=== PATIENT | male | born 1970 | race Caucasian/White ===

== ENCOUNTER 2024-03-21 20:30 | Inpatient (IN) | payer BC, MEDICARE, OTHER ==
--- NOTE | 2024-03-21 22:20 | ED ---
Neuro HPI - General Chief Complaint: Neuro Symptoms/Deficit Stated Complaint: Neuro Consult Time Seen by Provider: 03/21/24 21:00 Source: patient, EMS, RN notes reviewed Mode of arrival: EMS Limitations: no limitations - History of Present Illness Is the patient presenting with stroke symptoms?: No Initial Comments: 53-year-old male with history of seizure, hemorrhagic and ischemic stroke presenting to the ER via EMS as a transfer from [facility] for neuroconsult and left knee fracture. Patient was at home earlier today when he lost consciousness and fell in the driveway outside his daughter's house and is not remember anything. His had explained that he had atypical seizure, was shaky for about 2 minutes and after that was very confused and combative. He has been taking all of his medications regularly, does not miss any doses. He is currently taking Eliquis, Keppra, and Vimpat. X-ray of the left knee revealed fibular head fracture. He believes he fractured his knee when he fell in the driveway. Denies headache, vision changes, chest pain, shortness of breath, URI symptoms. He had a second, 30 second tonic-clonic seizure in the radiology department at [facility]. - Related Data Allergies/Adverse Reactions: Allergies Allergy/AdvReac Type Severity Reaction Status Date / Time azithromycin Allergy Rash/Hives Verified 03/21/24 20:39 almonte AdvReac Itching Verified 03/21/24 20:40 Review of Systems ROS Statement: Those systems with pertinent positive or pertinent negative responses have been documented in the HPI. ROS Other: All systems not noted in ROS Statement are negative. General Exam Limitations: no limitations General appearance: alert, in no apparent distress Head exam: Present: atraumatic, normocephalic, normal inspection Eye exam: Present: normal appearance, PERRL, EOMI. Absent: scleral icterus, conjunctival injection, periorbital swelling ENT exam: Present: normal exam, mucous membranes moist Respiratory exam: Present: normal lung sounds bilaterally. Absent: respiratory distress, wheezes, rales, rhonchi, stridor Cardiovascular Exam: Present: regular rate, normal rhythm, normal heart sounds. Absent: systolic murmur, diastolic murmur, rubs, gallop, clicks GI/Abdominal exam: Present: soft, normal bowel sounds. Absent: distended, tenderness, guarding, rebound, rigid Left Hip exam: Absent: normal inspection (Long-leg splint placed) Neurovascular tendon exam: Present: no vascular compromise. Absent: pulse deficit, abnormal cap refill, sensory deficit Stroke MDM - Medical Decision Making Was pt. sent in by a medical professional or institution ([facility], MITER GRINDER OPERATOR, urgent care, hospital, or fdc...) When possible be specific @ -Patient was transferred from [facility] for left fibular head fracture and multiple seizures Did you speak to anyone other than the patient for history (EMS, parent, family, police, friend...)? What history was obtained from this source @ -No Did you review nursing and triage notes (agree or disagree)? Why? @ -Yes I agree Were old charts reviewed (outside hosp., previous admission, EMS record, old EKG, old radiological studies, urgent care reports/EKG's, fdc records)? Report findings @ -I reviewed transfer papers from [facility] Differential Diagnosis (chest pain, altered mental status, abdominal pain women, abdominal pain men, vaginal bleeding, weakness, fever, dyspnea, syncope, headache, dizziness, GI bleed, back pain, seizure, CVA, palpatations, mental hea lth, musculoskeletal)? @ -Differential Altered Mental Status: Hypoglycemia, DKA, hypercapnia, ETOH, overdose, CO poisoning, trauma, myxedema coma, HTN encephalopathy, infection, encephalitis, psychosis, intercranial hemorrhage, hepatic encephalopathy, meningitis, CVA, this is not meant to be an all-inclusive list EKG interpreted by me (3pts min.). @ -None X-rays interpreted by me (1pt min.). @ -None done CT interpreted by me (1pt min.). @ -None done U/S interpreted by me (1pt. min.). @ -None done What testing was considered but not performed or refused? (CT, X-rays, U/S, labs)? Why? @ -None What meds were considered but not given or refused? Why? @ -None Did you discuss the management of the patient with other professionals (professionals i.e. [facility], MITER GRINDER OPERATOR, lab, RT, psych nurse, sexual assault social worker, metalsmith, teacher, benefits officer, pillowcase maker)? Give summary @ -I spoke with Mony from [facility] who accepts admission at this time for multiple seizures and right fibular head fracture with consultation to neurology and orthopedic services. I also spoke with Dr. Arguello who is the on-call neurologist and she is aware of consultation. Was smoking cessation discussed for >3mins.? @ -No Was critical care preformed (if so, how long)? @ -No Were there social determinants of health that impacted care today? How? (Homelessness, low income, unemployed, alcoholism, drug addiction, transportation, low edu. Level, literacy, decrease access to med. care, detention, rehab)? @ -No Was there de-escalation of care discussed even if they declined (Discuss DNR or withdrawal of care, Hospice)? DNR status @ -No What co-morbidities impacted this encounter? (DM, HTN, Smoking, COPD, CAD, Cancer, CVA, ARF, Chemo, Hep., AIDS, mental health diagnosis, sleep apnea, morbid obesity)? @ -None Was patient admitted / discharged? Hospital course, mention meds given and route, prescriptions, significant lab abnormalities, going to OR and other pertinent info. @ -Patient was admitted. Patient was transferred from [facility] for multiple seizures and left fibular head fracture. He had a tonic-clonic seizure in his driveway earlier today and was brought by EMS to [facility]. He was diagnosed with a left fibular head fracture, likely from fall during the seizure. He had 30 second tonic-clonic seizure in the radiology department. He was given Ativan and transferred for admission with neurology and orthopedic consult. CT of lumbar spine, chest x-ray, left hip, CT of head and brain performed at [facility] and were negative. Lab work at [facility] including CBC, CMP, magnesium, troponin, lactic, coags, venous pH were remarkable for INR 1.05 and venous pH 7.46. I spoke with Mony from [facility] who accepts admission at this time for multiple seizures and right fibular head fracture with consultation to neurology and orthopedic services. I also spoke with Dr. Jensen who is the on- call neurologist and she is aware of consultation. Keppra levels pending at time of admission. Undiagnosed new problem with uncertain prognosis? @ -No Drug Therapy requiring intensive monitoring for toxicity (Heparin, Nitro, Insulin, Cardizem)? @ -No Were any procedures done? @ -No Diagnosis/symptom? @ -Multiple seizures, right fibular head fracture Acute, or Chronic, or Acute on Chronic? @ -Acute Uncomplicated (without systemic symptoms) or Complicated (systemic symptoms)? @ -Complicated Side effects of treatment? @ -No Exacerbation, Progression, or Severe Exacerbation? @ -No Poses a threat to life or bodily function? How? (Chest pain, [place], [place], pneumonia, PE, COPD, DKA, ARF, appy, cholecystitis, CVA, Diverticulitis, Homicidal, Suicidal, threat to staff... and all critical care pts) @ -Possibly Past Medical History Additional Past Medical History / Comment(s): Stroke 2011 Past Surgical History: Heart Catheterization Additional Past Surgical History / Comment(s): Brain aneurysm "burst" -2011 Past Psychological History: Anxiety, Depression Smoking Status: Former smoker Past Alcohol Use History: None Reported Past Drug Use History: Marijuana Course Vital Signs 03/21/24 03/21/24 03/21/24 20:32 22:11 23:00 Temperature 98.3 F Pulse Rate 89 84 86 Respiratory 18 16 18 Rate Blood Pressure 156/102 164/78 151/82 O2 Sat by Pulse 98 95 95 Oximetry Disposition Clinical Impression: Seizures, Fracture of head of right fibula Disposition: ADMITTED IP TO THIS [facility] Condition: Stable Referrals: Kush Baron MD [Primary Care Provider] - 1-2 days Time of Disposition: 23:54
[2024-03-21] MEDS: HYDROmorphone 0.5 MG/0.5 ML SYRINGE IVP PRN (23:03)
[2024-03-21] MEDS ORDERED: NALOXONE 0.4 MG/ML 1 ML VIAL IV PRN (23:31)
[2024-03-21] MEDS ORDERED: LORazepam 2 MG/ML INJ IV PRN (23:42)
[2024-03-22] MEDS: HYDROmorphone 1 MG/ML 1 ML SYRINGE IVP STA (02:23)
[2024-03-22] MEDS: ACETAMINOPHEN TAB 325 MG TAB PO PRN (05:52)
--- NOTE | 2024-03-22 11:19 | XR ---
EXAMINATION TYPE: XR knee complete LT DATE OF EXAM: 03/22/2024 COMPARISON: None HISTORY: Fall, pain TECHNIQUE: 4 view left knee FINDINGS: No acute fracture or dislocation evident. Fibular head appears intact. Joint spaces are pre served. No joint effusion is evident. Follow up exams can be performed 7-10 days from acute trauma for continued pain. IMPRESSION: 1. No acute osseous abnormality left knee.
--- NOTE | 2024-03-22 11:20 | XR ---
EXAMINATION TYPE: XR ankle complete LT DATE OF EXAM: 03/22/2024 COMPARISON: None HISTORY: Fall, pain TECHNIQUE: 3 view left ankle FINDINGS: Very large plantar calcaneal heel spur is noted. Ankle mortise is intact. No acute fracture or dislocation is evident. Soft tissues are normal. IMPRESSION: 1. No acute fractures evident. 2. Very large plantar calcaneal spur
[2024-03-22 12:00] VITALS: TEMP 98.1
[2024-03-22] MEDS ORDERED: DOCUSATE 100 MG CAP PO PRN (12:06)
--- NOTE | 2024-03-22 12:18 | EEG ---
ELECTROENCEPHALOGRAM REPORT PREAMBLE: This is a 53-year-old male who came to the hospital after having multiple seizures at home that were witnessed by family. He has history of seizures secondary to brain bleed and stroke. He fell during the seizure and fractured his left leg. The patient mentioned that he has not missed any dose of his seizure medication and has not had a seizure for over 4 years. EEG FINDINGS: This is a 21-channel digital EEG recorded with video component, utilizing 10/20 international system with referential and bipolar montages. Background consists of well-developed, well-regulated moderate voltage activity in 9-10 hertz alpha. Background is posterior dominant and seems to be reactive to eye opening and closing. Photic driving response was seen with some flash frequencies. Hyperventilation was not done. Drowsiness was seen with presence of some symmetric theta frequency rhythm. Deeper stages of sleep were not seen. No focal or generalized epileptiform activity was seen. EKG channel showed no obvious arrhythmia. IMPRESSION: This is a normal awake and drowsy EEG. No focal, lateralized, or epileptiform activity was seen. MMODL / IJN: [id number] /
--- NOTE | 2024-03-22 13:18 | P.HPIM ---
History of Present Illness H&P Date: 03/22/24 History of present illness; patient is a 53-year-old gentleman with past medical history significant for seizures, CVA who presents the ER as a transfer from [facility] for seizures. Patient stated that he was all right 1 day back and while he was at her daughter's house, when suddenly he had a seizure episode. Daughter and over at the site noticed patient to suddenly collapsed and started having jerking movement of all his extremities. There was no complaint of any fecal or urine incontinence at the time. Patient was seizing for approximately 2 minutes. Following that patient was postictal and confused. During that episode patient fell on his left knee. EMS was called and patient was brought to the Hospital. Patient was worked up there, x-ray of the left knee showed fibular head fracture. Patient had an episode of seizures in the ER of [facility]. For neurology evaluation patient was transferred to [facility] Patient admitted to internal medicine service REVIEW OF SYSTEMS: CONSTITUTIONAL: No fever, no malaise, no fatigue. HEENT: No recent visual problems or hearing problems. Denied any sore throat. CARDIOVASCULAR: No chest pain, orthopnea, PND, no palpitations, no syncope. PULMONARY: No shortness of breath, no cough, no hemoptysis. GASTROINTESTINAL: No diarrhea, no nausea, no vomiting, no abdominal pain. NEUROLOGICAL: No headaches, no weakness, no numbness. HEMATOLOGICAL: Denies any bleeding or petechiae. GENITOURINARY: Denies any burning micturition, frequency, or urgency. MUSCULOSKELETAL/RHEUMATOLOGICAL: Left knee pain ENDOCRINE: Denies any polyuria or polydipsia. The rest of the 14-point review of systems is negative. PHYSICAL EXAMINATION: GENERAL: The patient is alert and oriented x3, not in any acute distress. Well developed, well nourished. HEENT: Pupils are round and equally reacting to light. EOMI. No scleral icterus. No conjunctival pallor. Normocephalic, atraumatic. No pharyngeal erythema. No thyromegaly. CARDIOVASCULAR: S1 and S2 present. No murmurs, rubs, or gallops. PULMONARY: Chest is clear to auscultation, no wheezing or crackles. ABDOMEN: Soft, nontender, nondistended, normoactive bowel sounds. No palpable organomegaly. MUSCULOSKELETAL: Left knee brace EXTREMITIES: No cyanosis, clubbing, or pedal edema. NEUROLOGICAL: Gross neurological examination did not reveal any focal deficits. SKIN: No rashes. Assessment and plan Fall Acute metabolic encephalopathy Seizures Left fibular fracture Monitor vital signs Monitor CBC Monitor CMP Continue telemetry monitoring Continue neurochecks Ordered seizure precaution Ordered fall precautions Ordered Keppra levels Ordered home Vimpat and Keppra dose Consult orthopedic surgery consult neurology Ordered PT and OT Labs and medication were reviewed.. Continue same treatment. Continue with symptomatic treatment. Resume home medication. Monitor labs and vitals. DVT and GI prophylaxis. Further recommendations as per clinical course of the patient Dictation was produced using [employer] dictation software. please excuse any grammatical, word or spelling errors. Past Medical History Additional Past Medical History / Comment(s): Stroke 2011 Past Surgical History: Heart Catheterization Additional Past Surgical History / Comment(s): Brain aneurysm "burst" -2011 Past Psychological History: Anxiety, Depression Smoking Status: Former smoker Past Alcohol Use History: None Reported Past Drug Use History: Marijuana Medications and Allergies Home Medications Medication Instructions Recorded Confirmed Type Amitriptyline HCl [Elavil] 150 mg PO HS 03/22/24 03/22/24 History Apixaban [Eliquis] 5 mg PO BID 03/22/24 03/22/24 History Atorvastatin [Lipitor] 40 mg PO HS 03/22/24 03/22/24 History LORazepam [Ativan] 0.5 mg PO BID 03/22/24 03/22/24 History Lacosamide [Vimpat] 100 mg PO BID 03/22/24 03/22/24 History Methadone HCl 10 mg PO 5XD 03/22/24 03/22/24 History Metoprolol Succinate (ER) [Toprol 25 mg PO DAILY 03/22/24 03/22/24 History Xl] levETIRAcetam [Keppra] 1,500 mg PO BID 03/22/24 03/22/24 History lisinopriL [Prinivil] 20 mg PO DAILY 03/22/24 03/22/24 History Allergies Allergy/AdvReac Type Severity Reaction Status Date / Time azithromycin Allergy Rash/Hives Verified 03/22/24 09:38 erythromycin base Allergy Rash/Hives Verified 03/22/24 09:38 [From Erythrocin] almonte AdvReac Itching Verified 03/22/24 09:38 Physical Exam Vitals: Vital Signs Temp Pulse Resp BP Pulse Ox 03/22/24 11:56 98.1 F 85 16 140/123 95 03/22/24 08:30 98 03/22/24 07:00 69 16 150/88 96 03/22/24 05:00 72 16 150/84 96 03/22/24 02:34 75 16 154/87 97 03/22/24 01:00 82 18 155/90 94 L 03/21/24 23:00 86 18 151/82 95 03/21/24 22:11 84 16 164/78 95 03/21/24 20:32 98.3 F 89 18 156/102 98 Intake and Output 03/21/24 03/22/24 03/22/24 22:59 06:59 14:59 Other: Weight 118.841 kg
[2024-03-22] MEDS: Lacosamide IV (ages 17+ yrs) 200 MG/20 ML ML IVP SCH (13:30)
[2024-03-22] MEDS: levETIRAcetam IV 500 MG/5 ML VIAL IVP STA (13:38)
--- NOTE | 2024-03-22 14:17 | P.CNNES ---
History of Present Illness Consult date: 03/22/24 Requesting physician: Christina Chavez Reason for Consult: Multiple seizures History of Present Illness: Patient is a 53-year-old male with history of CVA, seizure disorder, came to the hospital by ambulance yesterday at 8:30 PM, as a transfer from [facility] for management of seizure disorder. Patient's son and [id number] are present, who also provided with a history. They mentioned that patient was helping his and daughter unpack, talking to his daughter, when he started stuttering, went down on the ground and had a seizure lasting for 2 to 3 minutes. He did not bite his tongue, as he is edentulous, and did lose control of urine with a seizure. He was taken to [facility] by ambulance, as he was complaining of low back pain, left leg pain and left leg numbness. He was given fentanyl 75 mcg by the EMS. In [facility], he underwent testing, where there was suspected left fibular fracture. He was transferred to [facility]. As per records from [facility], at 5:15 PM, patient had a seizure in radiology department, lasted for 30 seconds duration, generalized tonic-clonic. He was awake after with no significant postictal confusion. He received Ativan 1 mg IV. Vital signs on arrival at [facility], blood pressure 156/102, pulse 89 temperature 98.3. Blood test none available. Ankle x-ray showed no acute fracture evident. Very large plantar calcaneal spur. X-ray of the knee showed no acute osseous abnormality left knee. Home medications includes Keppra 1500 mg twice daily, Vimpat 100 mg twice daily methadone 10 mg 5 times a day, Lipitor, Eliquis 5 mg twice daily, lorazepam, lisinopril, Elavil 150 mg at bedtime and metoprolol. 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 His INR went very high and he had a "hemorrhagic stroke" in 2011 with subsequent left-sided weakness. Coumadin was discontinued. He started having seizures. He had multiple seizures for a few years. In 2017, he suffered from "ischemic stroke" and was found to have "blood clot in the neck". He was then started on Eliquis. Since then, his seizures has been very well-controlled, and he had about only couple "staring seizures", in which she "zones out" and the last one was in around 2018. He has been doing well on Keppra 1500 mg twice daily and Vimpat 100 mg twice daily. He has not had a big seizure for 6 years. Patient states that he never misses the dose of his seizure medications. He does not drink alcohol. Denies any sleep deprivation. In fact he is sleeping m ore than usual because of some depression. He does take Ativan 0.5 mg twice daily, denies running out of it or any other seizure medication. He used to take Xanax and within the year was switched to Ativan. Patient claims of having advanced ankylosing spondylitis. This was diagnosed about 1 to 2 years ago. Records from [facility]: CT lumbar spine revealed no acute findings. Bony fusion changes noted which could represent inflammatory arthropathy such as ankylosing spondylitis.. x-ray of the tibia revealed possible fibular head fracture. X-ray of the chest showed no acute findings. X-ray of the left hip showed no acute findings. X-ray of the left femur showed no acute findings. CT head revealed no acute intracranial process. Visualized sinuses are unremarkable. No fluid level. I personally reviewed CT head, and agree with the findings. No evidence of recent or remote stroke. No mass lesion. Magnesium 1.9 CMP is normal. Troponin negative. PTT normal. Lactate 2.2. BNP is 102/100. INR normal. Venous pH 7.46. CBC is normal. Patient was given Keppra 1000 mg once, Ativan 0.5 mg, morphine 4 mg in the ER. Patient has history of seizure disorder, hemorrhagic and ischemic stroke in the past, was brought by EMS after he lost his consciousness and fell, and he remembers waking in the driveway outside his daughter house and then he does not remember anything. Review of Systems Constitutional: Reports weight loss, Denies chills, Denies fever Eyes: denies blurred vision, denies diplopia, denies pain, denies loss of peripheral vision Ears: left: decreased hearing, deny: ear discharge Ears, nose, mouth and throat: Reports headache (dailly), Denies sore throat, Denies vertigo Cardiovascular: Reports lightheadedness (on standing up), Denies chest pain, Denies shortness of breath Respiratory: Denies cough, Denies excessive sputum Gastrointestinal: Reports constipation, Denies abdominal pain, Denies diarrhea, Denies nausea, Denies vomiting Genitourinary: Denies dysuria, Denies incontinence Musculoskeletal: Reports low back pain, Reports neck pain Integumentary: Denies pruritus, Denies rash Neurological: Reports as per HPI Psychiatric: Reports anxiety, Reports depression Endocrine: Reports weight change, Denies fatigue Past Medical History Additional Past Medical History / Comment(s): Stroke 2011 Past Surgical History: Heart Catheterization Additional Past Surgical History / Comment(s): Brain aneurysm "burst" -2011 Past Psychological History: Anxiety, Depression Smoking Status: Former smoker Past Alcohol Use History: None Reported Past Drug Use History: Marijuana Medications and Allergies Home Medications Medication Instructions Recorded Confirmed Type Amitriptyline HCl [Elavil] 150 mg PO HS 03/22/24 03/22/24 History Apixaban [Eliquis] 5 mg PO BID 03/22/24 03/22/24 History Atorvastatin [Lipitor] 40 mg PO HS 03/22/24 03/22/24 History LORazepam [Ativan] 0.5 mg PO BID 03/22/24 03/22/24 History Lacosamide [Vimpat] 100 mg PO BID 03/22/24 03/22/24 History Methadone HCl 10 mg PO 5XD 03/22/24 03/22/24 History Metoprolol Succinate (ER) [Toprol 25 mg PO DAILY 03/22/24 03/22/24 History Xl] levETIRAcetam [Keppra] 1,500 mg PO BID 03/22/24 03/22/24 History lisinopriL [Prinivil] 20 mg PO DAILY 03/22/24 03/22/24 History Allergies Allergy/AdvReac Type Severity Reaction Status Date / Time azithromycin Allergy Rash/Hives Verified 03/22/24 09:38 erythromycin base Allergy Rash/Hives Verified 03/22/24 09:38 [From Erythrocin] almonte AdvReac Itching Verified 03/22/24 09:38 Physical Examination - Vital Signs Vital Signs: Vital Signs Temp Pulse Resp BP Pulse Ox 03/22/24 11:56 98.1 F 85 16 140/123 95 03/22/24 08:30 98 03/22/24 07:00 69 16 150/88 96 03/22/24 05:00 72 16 150/84 96 03/22/24 02:34 75 16 154/87 97 03/22/24 01:00 82 18 155/90 94 L 03/21/24 23:00 86 18 151/82 95 03/21/24 22:11 84 16 164/78 95 03/21/24 20:32 98.3 F 89 18 156/102 98 Intake and Output 03/21/24 03/22/24 03/22/24 22:59 06:59 14:59 Other: Weight 118.841 kg Patient is a middle aged male, in no acute distress. Patient is alert awake oriented to time place and person. He knows it is March 2024 and that he is in [place] in [facility]. Speech and language functions are normal. Patient can name and repeat very well. No aphasia or dysarthria. Attention, concentration and fund of knowledge is adequate. On cranial nerve examination, pupils are equal, round and reacting to light, visual sanchez are full on confrontation, with no neglect on double simultaneous stimulation. Extraocular muscles are intact with no nystagmus. Face is symmetric, tongue protrudes to the midline. Palatal elevation and sensation normal, hearing and shoulder shrug normal, facial sensation normal. On muscle strength testing, there is mild left pronator drift and the strength is normal in arms and legs distally and proximally, except for business rules analyst which is 4 on the left, 5 on the right. Rest of the examination is normal. Deep tendon reflexes are symmetric very hypoactive and plantars are flat. Sensory to touch is decreased in the left arm and left leg as compared to the right side. Sensations are equal on the face. Cerebellar function showed no ataxia for [id number] testing, although he was very tremulous bilaterally. No dysdiadochokinesia. No ataxia for [id number] testing on either side. Tone and bulk of muscles normal. Gait deferred.. On general examination, there is no carotid bruit or murmur, S1-S2 audible. Chest is clear on consultation. Abdomen is soft nontender. No organomegaly, bowel sounds present. Peripheral pulses are present. Mild peripheral edema. He has some purplish discoloration of the distal lower extremities. Assessment and Plan Assessment: * Seizure disorder, came with breakthrough seizure. Exact cause of breakthrough seizure uncertain, as he has been very compliant with the medication, denies any other provoking factors. Denies running out of seizure medications or Ativan. * Reported history of hemorrhagic stroke in 2012 with subsequent left-sided weakness * Reported history of ischemic stroke in 2017 * Seizure disorder since 2012 * Reported history of factor V Leiden mutation * History of DVTs Plan: * Patient has breakthrough seizure of unclear cause. No obvious provoking factor identified. * EEG was performed, which was normal awake and drowsy. No focal, lateralized or epileptiform activity was seen. * We will increase Vimpat to 150 mg twice daily. * Continue Eliquis for stroke prevention. * Orthopedic surgery also on board for left leg pain. * Continue Keppra at the same dose of 1500 mg twice daily. * Patient used to follow-up with Dr. Britt at [place], whom he have not seen for couple years. Recommend patient follow-up with neurologist in 2 to 4 weeks. * Patient informed of [place] state law of no driving unless seizure-free for 6 months, climbing ladders, operating dangerous machinery or unsupervised swimming. * Neurologically clear for discharge. Thank you for the consult. Time with Patient: Greater than 30
--- NOTE | 2024-03-22 14:20 | P.CNOR ---
History of Present Illness - [facility] Consult date: 03/22/24 Consult reason: joint pain (Left knee pain) History of present illness: Patient is a 53-year-old male who was transferred from [facility] to [facility] for further evaluation of a seizure that occurred a few days ago. Patient had initially been evaluated at [facility], imaging and lab tests were done multiple consults have been placed, patient was admitted to internal medicine. Our orthopedic team was consulted for questionable left fibular head fracture. And then transferred to our hospital for further management. Patient was evaluated in the emergency room, he had multiple family members present at bedside. He does have a knee immobilizer on the left lower extremity at this time. I was unable to review the x-rays that were taken at the previous hospital, I did order left knee x-rays along with left ankle x-rays. Patient admits to having a previous left and right knee arthroscopy many years ago. Patient cannot remember exactly how he fell due to the seizure, but he states family members noted his knee was flexed quite a bit during the fall. Patient does admit to some generalized knee pain at this time. He has been weightbearing since being placed in the immobilizer. He currently has no right lower extremity symptoms. He denies any pain to the bilateral upper extremities. He has history of CVA which has left him with left-sided weakness and paresthesias. Review of Systems Constitutional: Reports as per [facility] Past Medical History Additional Past Medical History / Comment(s): Stroke 2011 Past Surgical History: Heart Catheterization Additional Past Surgical History / Comment(s): Brain aneurysm "burst" -2011 Past Psychological History: Anxiety, Depression Smoking Status: Former smoker Past Alcohol Use History: None Reported Past Drug Use History: Marijuana Medications and Allergies Home Medications Medication Instructions Recorded Confirmed Type Amitriptyline HCl [Elavil] 150 mg PO HS 03/22/24 03/22/24 History Apixaban [Eliquis] 5 mg PO BID 03/22/24 03/22/24 History Atorvastatin [Lipitor] 40 mg PO HS 03/22/24 03/22/24 History LORazepam [Ativan] 0.5 mg PO BID 03/22/24 03/22/24 History Lacosamide [Vimpat] 100 mg PO BID 03/22/24 03/22/24 History Methadone HCl 10 mg PO 5XD 03/22/24 03/22/24 History Metoprolol Succinate (ER) [Toprol 25 mg PO DAILY 03/22/24 03/22/24 History Xl] levETIRAcetam [Keppra] 1,500 mg PO BID 03/22/24 03/22/24 History lisinopriL [Prinivil] 20 mg PO DAILY 03/22/24 03/22/24 History Allergies Allergy/AdvReac Type Severity Reaction Status Date / Time azithromycin Allergy Rash/Hives Verified 03/22/24 09:38 erythromycin base Allergy Rash/Hives Verified 03/22/24 09:38 [From Erythrocin] almonte AdvReac Itching Verified 03/22/24 09:38 Physical Examination Left lower extremity: Knee immobilizer was removed today at bedside. There is a small abrasion/bruise on the medial aspect of the knee. There is no effusion present on the knee. There is no significant areas of erythema Patient demonstrates mild tenderness with palpation along the medial joint line. He is nontender over the fibular head, he is nontender to the lower leg, this to include foot or ankle. He is nontender with palpation of the proximal femur. Logroll maneuver reproduces no groin pain. He is able to extend and flex the knee with minimal difficulty, there is no pain reproduced. Plantarflexion, dorsiflexion, EHL, FHL are intact. Patient is stable to both varus and valgus force Sensory defects are noted with light touch to the left lower extremity from previous stroke Calf is soft, no tenderness with palpation Her dorsalis pedis pulses 2+ Results - Diagnostic results Knee x-ray: report reviewed, image reviewed (X-rays and reports of the left knee were reviewed, no evidence of effusion, no evidence of fracture involving the fibular head. Osteoarthritic findings noted of the medial, lateral and patellofemoral joint) Ankle/Foot x-ray: report reviewed, image reviewed (X-rays and reports were reviewed of the left ankle, no acute fractures or dislocations appreciated, no acute osseous abnormalities) Assessment and Plan Assessment: Left knee pain Left knee tricompartmental osteoarthritis Left knee contusion Recent seizure History of CVA Other medical comorbidities Plan: I was able to discuss the case, this to include both physical exam findings and imaging studies with my attending Dr. Severino. No emergent orthopedic surgical intervention is recommended at this time No acute evidence of fibular head fracture at this time, patient is very asymptomatic on exam. He does demonstrate some tenderness along the medial joint in the area where the ecchymosis is likely from impact of the fall. Recommending discontinuation of the knee immobilizer at this time. Patient can weight-bear as tolerated, he normally utilizes a cane I advise using a cane or walker at this time Icing and elevating techniques were discussed along with the use of Tylenol DVT and GI prophylaxis per primary medical service Other medical specialty recommendations appreciated Discharge planning: On orthopedic standpoint patient remained stable for discharge, our follow-up information will be placed in the chart to follow-up on an as-needed basis. Please contact our service with any further questions regarding this patient Time with Patient: Less than 30
[2024-03-22] MEDS ORDERED: polyethylene glycoL 3350 17 GM POWD.PACK PO SCH (16:00)
[2024-03-22] MEDS: polyethylene glycoL 3350 17 GM POWD.PACK PO SCH (16:48)
[2024-03-22] MEDS: DOCUSATE 100 MG CAP PO PRN (16:58)
[2024-03-22] MEDS ORDERED: ATORVASTATIN 40 MG TAB PO SCH (21:00)
[2024-03-22] MEDS: LORazepam 0.5 MG TAB PO SCH (22:02)
[2024-03-22] MEDS: levETIRAcetam 500 MG TAB PO SCH (22:03)
[2024-03-22] MEDS: APIXABAN 5 MG TAB PO SCH (22:03)
[2024-03-22] MEDS: LACOSAMIDE 150 MG TABLET PO SCH (22:50)
[2024-03-23 00:09] VITALS: RESP 18
[2024-03-23] MEDS: METOPROLOL SUCCINATE (ER) 25 MG TAB.ER.24H PO SCH (09:33)
[2024-03-23] MEDS: lisinopriL 20 MG TAB PO SCH (09:33)
[2024-03-23] MEDS: LACOSAMIDE 50 MG TABLET PO SCH (10:15)
[2024-03-23 15:51] VITALS: BP 128/76; PULSE 126
== END 2024-03-23 15:49 | disposition home or self-care (01) | DRG 100 ==
LOC: EC 20:30 → 4SSUR 23:31
PROVIDERS: ADMIT Internal Medicine; ATTEND Internal Medicine
DX: G40.909 Epilepsy, unspecified, not intractable, without status epilepticus (principal); G93.41 Metabolic encephalopathy; I69.354 Hemiplegia and hemiparesis following cerebral infarction affecting left non-dominant side; D68.51 Activated protein C resistance; S80.02XA Contusion of left knee, initial encounter; F32.A Depression, unspecified; M45.9 Ankylosing spondylitis of unspecified sites in spine; Z28.310 Unvaccinated for COVID-19; F41.9 Anxiety disorder, unspecified; M54.50 Low back pain, unspecified; M77.30 Calcaneal spur, unspecified foot; M17.12 Unilateral primary osteoarthritis, left knee; Z79.01 Long term (current) use of anticoagulants; Z79.899 Other long term (current) drug therapy; Z86.718 Personal history of other venous thrombosis and embolism; Z87.891 Personal history of nicotine dependence; W19.XXXA Unspecified fall, initial encounter; Z88.1 Allergy status to other antibiotic agents
CPT/HCPCS: 80177; 94760; 95816; 96365; 96366; 96375; 96376; 99285

== ENCOUNTER 2025-02-18 22:13 | Emergency (ER) | payer MEDICARE, OTHER ==
--- NOTE | 2025-02-18 22:43 | CT ---
EXAM: CT Head Without Intravenous Contrast CLINICAL HISTORY: ITS.REASON CT Reason: fall injury/eliquis use TECHNIQUE: Axial computed tomography images of the head/brain without intravenous contrast. CTDI is 45.2 mGy and DLP is 1115 mGy-cm. This CT exam was performed using one or more of the following dose reduction techniques: automated exposure control, adjustment of the mA and/or kV according to patient size, and/or use of iterative reconstruction technique. COMPARISON: CT 03/21/2024 FINDINGS: Brain: No hemorrhage, extra-axial fluid collection, mass effect, or edema. Ventricles: Unremarkable. Bones/joints: Unremarkable. No fracture. Soft tissues: Left frontal scalp hematoma. Sinuses: No acute sinusitis. Mastoid air cells: Unremarkable as visualized. IMPRESSION: 1. No acute intracranial abnormality. 2. Left frontal scalp hematoma. EXAM: CT Cervical Spine Without Intravenous Contrast CLINICAL HISTORY: ITS.REASON CT Reason: fall injury/eliquis use TECHNIQUE: Axial computed tomography images of the cervical spine without intravenous contrast. CTDI is 29.7 mGy and DLP is 919.6 mGy-cm. This CT exam was performed using one or more of the following dose reduction techniques: automated exposure control, adjustment of the mA and/or kV according to patient size, and/or use of iterative reconstruction technique. COMPARISON: No relevant prior studies available. FINDINGS: Vertebrae: No acute fracture or traumatic malalignment. 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 Mild canal stenosis. Disc osteophyte at T1-T2 also causes mild canal stenosis. Soft tissues: Unremarkable. IMPRESSION: No acute fracture or traumatic malalignment. <MYCVCSECTION> Communications: 02/19/25 02:[address] Degroot on 02/19 02:50 (-04:00)
--- NOTE | 2025-02-18 22:50 | XR ---
EXAM: XR Left Shoulder Complete, 2 or More Views CLINICAL HISTORY: ITS.REASON XR Reason: fall injury TECHNIQUE: Two or more views of the left shoulder. COMPARISON: No relevant prior studies available. FINDINGS: Bones/joints: No fracture or malalignment. Mild degenerative changes at the acromioclavicular joint. Soft tissues: Unremarkable. IMPRESSION: No fracture or malalignment.
[2025-02-18 23:11] LABS: Basophils # (A) 0.04 10*3/uL (0.00-0.10); Basophils % (A) 0.2 %; Eosinophils # (A) 0.03 10*3/uL (0.04-0.35); Eosinophils % (A) 0.1 %; HCT 43.7 % (39.6-50.0); HGB 14.9 g/dL (13.0-17.0); Lymphocytes # (A) 1.77 10*3/uL (0.90-5.00); Lymphocytes % (A) 8.4 %; MCH 31.3 pg (27.0-32.0); MCHC 34.1 g/dL (32.0-37.0); MCV 91.8 fL (80.0-97.0); Mean Platelet Volume 9.4 fL (9.5-12.2); Monocytes # (A) 1.42 10*3/uL (0.20-1.00); Monocytes % (A) 6.7 %; Neutrophils # (A) 17.78 10*3/uL (1.80-7.70); Neutrophils % (A) 84.2 %; Platelet Count 289 10*3/uL (140-440); RBC 4.76 10*6/uL (4.40-5.60); RDW 12.9 % (11.5-14.5); WBC 21.13 10*3/uL (4.50-10.00)
--- NOTE | 2025-02-18 23:14 | ED ---
Seizure HPI - General Chief Complaint: Seizure Stated Complaint: Seizure Time Seen by Provider: 02/18/25 22:14 Source: patient, EMS Mode of arrival: EMS Limitations: no limitations - History of Present Illness Initial Comments: This patient is a 54-year-old man who presents to have evaluation after having had a seizure and falling. The patient does have history of seizures, taking Keppra and Vimpat. Last seizure reported to be approximately 6 months ago. The patient states that he was in the bathroom getting ready to shave and then believes he must of had a seizure. The patient complains of aches on the left side and believes he had fallen onto his left side. The patient complains of pain to the shoulder and the left scalp/forehead. Denies neck pain. Denies any neurologic symptoms. MD Complaint: seizure -: minutes(s) Description of Episode: loss of consciousness, tonic-clonic movement -: second(s) Witnessed: yes - by bystander Trauma: Yes Seizure History: known seizure disorder Place: home Possible Precipitating Event: none Associated Symptoms: denies other symptoms Treatments Prior to Arrival: none - Related Data Home Medications Medication Instructions Recorded Confirmed Amitriptyline HCl [Elavil] 150 mg PO HS 03/22/24 03/22/24 Apixaban [Eliquis] 5 mg PO BID 03/22/24 03/22/24 Atorvastatin [Lipitor] 40 mg PO HS 03/22/24 03/22/24 LORazepam [Ativan] 0.5 mg PO BID 03/22/24 03/22/24 Methadone HCl 10 mg PO 5XD 03/22/24 03/22/24 Metoprolol Succinate (ER) [Toprol 25 mg PO DAILY 03/22/24 03/22/24 XL] levETIRAcetam [Keppra] 1,500 mg PO BID 03/22/24 03/22/24 lisinopriL [Prinivil] 20 mg PO DAILY 03/22/24 03/22/24 Previous Rx's Medication Instructions Recorded Acetaminophen Tab [Tylenol] 650 mg PO Q6HR PRN tab 03/23/24 Docusate [Colace] 100 mg PO DAILY PRN cap 03/23/24 Lacosamide [Vimpat] 150 mg PO BID 30 Days #180 tab 03/23/24 polyethylene glycoL 3350 [Miralax] 17 gm PO DAILY #30 packet 03/23/24 Allergies Allergy/AdvReac Type Severity Reaction Status Date / Time azithromycin Allergy Rash/Hives Verified 02/18/25 22:33 erythromycin base Allergy Rash/Hives Verified 02/18/25 22:33 [From Erythrocin] almonte AdvReac Itching Verified 02/18/25 22:33 Review of Systems ROS Statement: Those systems with pertinent positive or pertinent negative responses have been documented in the HPI. ROS Other: All systems not noted in ROS Statement are negative. Constitutional: Denies: fever, chills, weakness Eyes: Denies: eye pain, vision change ENT: Denies: hearing loss, epistaxis Respiratory: Denies: cough, dyspnea Cardiovascular: Denies: chest pain, palpitations, edema Gastrointestinal: Denies: abdominal pain, nausea, vomiting Genitourinary: Denies: dysuria, hematuria Musculoskeletal: Reports: as per HPI, arthralgia. Denies: back pain Skin: Denies: rash Neurological: Reports: headache. Denies: weakness, numbness, confusion Hematological/Lymphatic: Reports: other (Taking Eliquis) Past Medical History Additional Past Medical History / Comment(s): Stroke 2011 History of Any Multi-Drug Resistant Organisms: None Reported Past Surgical History: Heart Catheterization Additional Past Surgical History / Comment(s): Brain aneurysm "burst" -2011 Past Psychological History: Anxiety, Depression Smoking Status: Former smoker Past Alcohol Use History: None Reported Past Drug Use History: Marijuana General Exam Limitations: no limitations General appearance: alert, in no apparent distress Head exam: Present: normocephalic, other (Contusion left forehead/scalp) Eye exam: Present: normal appearance, PERRL, EOMI, scleral icterus, conjunctival injection. Absent: nystagmus, periorbital swelling, periorbital tenderness ENT exam: Present: normal oropharynx, mucous membranes moist, normal external ear exam Neck exam: Present: normal inspection, full ROM. Absent: tenderness, meningismu s Respiratory exam: Present: normal lung sounds bilaterally. Absent: respiratory distress, wheezes, rales, rhonchi, stridor, chest wall tenderness, accessory muscle use Cardiovascular Exam: Present: regular rate, normal rhythm, normal heart sounds. Absent: systolic murmur, diastolic murmur, rubs, gallop GI/Abdominal exam: Present: soft. Absent: distended, tenderness, guarding, rebound, rigid, mass Extremities exam: Present: normal inspection, normal capillary refill, other (Contusion left knee). Absent: pedal edema Back exam: Present: normal inspection. Absent: CVA tenderness (R), CVA tenderness (L), paraspinal tenderness, vertebral tenderness Neurological exam: Present: alert, oriented X3, CN II-XII intact. Absent: motor sensory deficit Skin exam: Present: warm, dry, intact, normal color. Absent: rash Course Vital Signs 02/18/25 02/18/25 02/19/25 22:28 23:00 00:00 Temperature 97.5 F L Pulse Rate 94 101 H 92 Respiratory 22 21 18 Rate Blood Pressure 169/106 155/114 130/99 O2 Sat by Pulse 98 97 96 Oximetry 02/19/25 02/19/25 02/19/25 01:00 02:00 04:34 Temperature 97.6 F Pulse Rate 80 80 79 Respiratory 18 18 19 Rate Blood Pressure 142/83 145/89 155/93 O2 Sat by Pulse 99 99 95 Oximetry Medical Decision Making - Medical Decision Making Patient is 54-year-old man with history of seizure disorder who arrives to have evaluation after what sounds like acute generalized tonic-clonic seizure. The patient is on Eliquis and did have a fall the mechanism concerning for possible intracranial hemorrhage therefore CT scan of the brain and C-spine is obtained. I interpreted this as negative for acute intracranial hemorrhage, mass effect or midline shift. No acute bony trauma. The patient had x-ray of the left shoulder which I interpreted as negative for fracture or dislocation. On reevaluation, the patient was feeling better but he did have increasing soreness of the left knee and x-ray was obtained here which I interpreted as negative for acute fracture or dislocation. Was pt. sent in by a medical professional or institution (, PA, [employer], urgent care, hospital, or halfway...) When possible be specific @ -[No] Did you speak to anyone other than the patient for history (EMS, parent, family, police, friend...)? What history was obtained from this source @ -[No] Did you review nursing and triage notes (agree or disagree)? Why? @ -[I reviewed and agree with nursing and triage notes] Were old charts reviewed (outside hosp., previous admission, EMS record, old EKG, old radiological studies, urgent care reports/EKG's, halfway records)? Report findings @ -[No old charts were reviewed] Differential Diagnosis (chest pain, altered mental status, abdominal pain women, abdominal pain men, vaginal bleeding, weakness, fever, dyspnea, syncope, headache, dizziness, GI bleed, back pain, seizure, CVA, palpatations, mental hea lth, musculoskeletal)? @ -[Differential Seizure: Recurrent seizure disorder, febrile seizure, alcohol withdrawal, stimulants, meningitis, encephalitis, intercranial hemorrhage, intracranial tumor, stroke, eclampsia, thyrotoxicosis, hypocalcemia, hyponatremia, hypernatremia, hypomagnesemia, psychogenic, this is not meant to be an all-inclusive list. EKG interpreted by me (3pts min.). @ -[I interpreted as above] X-rays interpreted by me (1pt min.). @ -I interpreted as above CT interpreted by me (1pt min.). @ -[I interpreted as above U/S interpreted by me (1pt. min.). @ -[None done] What testing was considered but not performed or refused? (CT, X-rays, U/S, labs)? Why? @ -[None] What meds were considered but not given or refused? Why? @ -[None] Did you discuss the management of the patient with other professionals (professionals i.e. , PA, [employer], lab, RT, psych nurse, social service coordinator, housing coordinator, teacher, professional security officer, lead case manager)? Give summary @ -[No] Was smoking cessation discussed for >3mins.? @ -[No] Was critical care preformed (if so, how long)? @ -[No] Were there social determinants of health that impacted care today? How? (Homelessness, low income, unemployed, alcoholism, drug addiction, transportation, low edu. Level, literacy, decrease access to med. care, residential, rehab)? @ -[No] Was there de-escalation of care discussed even if they declined (Discuss DNR or withdrawal of care, Hospice)? DNR status @ -[No] What co-morbidities impacted this encounter? (DM, HTN, Smoking, COPD, CAD, Cancer, CVA, ARF, Chemo, Hep., AIDS, mental health diagnosis, sleep apnea, mor bid obesity)? @ -[None] Was patient admitted / discharged? Hospital course, mention meds given and route, prescriptions, significant lab abnormalities, going to OR and other pertinent info. @ -[The patient reevaluated and at this point feeling better and would like to go home. Discussed appropriate further care and follow-up as well as return parameters. The patient will follow with the neurologist. Undiagnosed new problem with uncertain prognosis? @ -[No] Drug Therapy requiring intensive monitoring for toxicity (Heparin, Nitro, Insulin, Cardizem)? @ -[No] Were any procedures done? @ -[No] Diagnosis/symptom? @ -[Acute generalized tonic-clonic seizure Left scalp hematoma Left shoulder contusion Left knee contusion Acute, or Chronic, or Acute on Chronic? @ -[Acute Uncomplicated (without systemic symptoms) or Complicated (systemic symptoms)? @ -[Uncomplicated Side effects of treatment? @ -[No] Exacerbation, Progression, or Severe Exacerbation? @ -[No] Poses a threat to life or bodily function? How? (Chest pain, [place], [place], pneumonia, PE, COPD, DKA, ARF, appy, cholecystitis, CVA, Diverticulitis, Homicidal, Suicidal, threat to staff... and all critical care pts) @ -[No] All treatments are based on ideal body weight as in ED triage - Lab Data Result diagrams: 02/18/25 22:50 02/18/25 22:50 Lab Results 02/18/25 02/18/25 02/18/25 Range/Units 22:50 22:50 22:50 WBC 21.13 H (4.50-10.00) 10*3/uL RBC 4.76 (4.40-5.60) 10*6/uL Hgb 14.9 (13.0-17.0) g/dL Hct 43.7 (39.6-50.0) % MCV 91.8 (80.0-97.0) fL MCH 31.3 (27.0-32.0) pg MCHC 34.1 (32.0-37.0) g/dL Plt Count 289 (140-440) 10*3/uL MPV 9.4 L (9.5-12.2) fL Immature Gran % (Auto) 0.4 % Neutrophils % 84.2 % Lymphocytes % 8.4 % Monocytes % 6.7 % Eosinophils % 0.1 % Basophils % 0.2 % Immature Gran # 0.09 H (0.00-0.04) 10*3/uL Neutrophils # 17.78 H (1.80-7.70) 10*3/uL Lymphocytes # 1.77 (0.90-5.00) 10*3/uL Monocytes # 1.42 H (0.20-1.00) 10*3/uL Eosinophils # 0.03 L (0.04-0.35) 10*3/uL Basophils # 0.04 (0.00-0.10) 10*3/uL Sodium 139 (137-145) mmol/L Potassium 3.8 (3.5-5.1) mmol/L Chloride 102 (98-107) mmol/L Carbon Dioxide 13 L (22-30) mmol/L Anion Gap 24 mmol/L BUN 12 (9-20) mg/dL Creatinine 0.81 (0.66-1.25) mg/dL Est GFR (CKD-EPI)AfAm >90 (>60 ml/min/1.73 sqM) Est GFR (CKD-EPI)NonAf >90 (>60 ml/min/1.73 sqM) Glucose 164 H (74-99) mg/dL Plasma Lactic Acid Aristeo 13.2 H* (0.7-2.0) mmol/L Calcium 9.3 (8.4-10.2) mg/dL Total Bilirubin 0.7 (0.2-1.3) mg/dL AST 45 (17-59) U/L ALT 24 (4-49) U/L Alkaline Phosphatase 103 (38-126) U/L Total Protein 8.2 (6.3-8.2) g/dL Albumin 4.8 (3.5-5.0) g/dL Levetiracetam (3.0-60.0) ug/mL 02/18/25 02/19/25 Range/Units 22:50 01:04 WBC (4.50-10.00) 10*3/uL RBC (4.40-5.60) 10*6/uL Hgb (13.0-17.0) g/dL Hct (39.6-50.0) % MCV (80.0-97.0) fL MCH (27.0-32.0) pg MCHC (32.0-37.0) g/dL Plt Count (140-440) 10*3/uL MPV (9.5-12.2) fL Immature Gran % (Auto) % Neutrophils % % Lymphocytes % % Monocytes % % Eosinophils % % Basophils % % Immature Gran # (0.00-0.04) 10*3/uL Neutrophils # (1.80-7.70) 10*3/uL Lymphocytes # (0.90-5.00) 10*3/uL Monocytes # (0.20-1.00) 10*3/uL Eosinophils # (0.04-0.35) 10*3/uL Basophils # (0.00-0.10) 10*3/uL Sodium (137-145) mmol/L Potassium (3.5-5.1) mmol/L Chloride (98-107) mmol/L Carbon Dioxide (22-30) mmol/L Anion Gap mmol/L BUN (9-20) mg/dL Creatinine (0.66-1.25) mg/dL Est GFR (CKD-EPI)AfAm (>60 ml/min/1.73 sqM) Est GFR (CKD-EPI)NonAf (>60 ml/min/1.73 sqM) Glucose (74-99) mg/dL Plasma Lactic Acid Aristeo 2.0 (0.7-2.0) mmol/L Calcium (8.4-10.2) mg/dL Total Bilirubin (0.2-1.3) mg/dL AST (17-59) U/L ALT (4-49) U/L Alkaline Phosphatase (38-126) U/L Total Protein (6.3-8.2) g/dL Albumin (3.5-5.0) g/dL Levetiracetam 18.4 (3.0-60.0) ug/mL - EKG Data -: EKG Interpreted by Me EKG shows normal: sinus rhythm, axis (Normal), intervals (Normal), QRS complexes (Normal), ST-T waves (Normal) Rate: normal (Rate 92 bpm) Disposition Clinical Impression: Seizures, Knee contusion, Head injury Disposition: HOME SELF-CARE Condition: Good Instructions (If sedation given, give patient instructions): Head Injury (ED), Recurrent Seizures in Adults (ED) Is patient prescribed a controlled substance at d/c from ED?: No Referrals: Kush Baron MD [Primary Care Provider] - 1-2 days
[2025-02-18] MEDS: LORazepam 1 MG/0.5 ML VIAL IV STA (23:24)
[2025-02-18 23:31] LABS: AST 45 U/L (17-59); African American GFR (CKD) >90 (>60 ml/min/1.73 sqM); Albumin 4.8 g/dL (3.5-5.0); Alkaline Phosphatase 103 U/L (38-126); Anion Gap 24 mmol/L; Blood Urea Nitrogen 12 mg/dL (9-20); Calcium 9.3 mg/dL (8.4-10.2); Carbon Dioxide 13 mmol/L (22-30); Chloride 102 mmol/L (98-107); Glucose 164 mg/dL (74-99); Non-African American GFR(CKD) >90 (>60 ml/min/1.73 sqM); Potassium 3.8 mmol/L (3.5-5.1); Sodium 139 mmol/L (137-145); Total Bilirubin 0.7 mg/dL (0.2-1.3); Total Protein 8.2 g/dL (6.3-8.2)
[2025-02-18 23:38] LABS: ALT 24 U/L (4-49)
[2025-02-19] MEDS: SODIUM CHLORIDE 0.9% 1,000 ML IV ONE (01:19)
[2025-02-19] MEDS: HYDROcodone/APAP 7.5-325MG 1 EACH TAB PO ONE (02:18)
--- NOTE | 2025-02-19 02:59 | XR ---
EXAM: XR Left Knee, 3 Views CLINICAL HISTORY: Injury TECHNIQUE: Three views of the left knee. COMPARISON: No relevant prior studies available. FINDINGS: Bones/joints: There are degenerative changes of all 3 compartments of the knee. No acute fracture. No dislocation. Soft tissues: Unremarkable. IMPRESSION: No acute findings in the left knee.
[2025-02-19 05:02] VITALS: BP 155/93; PULSE 79; RESP 19; TEMP 97.6
== END 2025-02-19 04:34 | disposition home or self-care (01) ==
LOC: EC 22:13
DX: S80.02XA Contusion of left knee, initial encounter (principal); S00.03XA Contusion of scalp, initial encounter; G40.909 Epilepsy, unspecified, not intractable, without status epilepticus; Z86.73 Personal history of transient ischemic attack (TIA), and cerebral infarction without residual deficits; Z87.891 Personal history of nicotine dependence; Z88.1 Allergy status to other antibiotic agents; Z91.018 Allergy to other foods; W18.30XA Fall on same level, unspecified, initial encounter; Y92.002 Bathroom of unspecified non-institutional (private) residence as the place of occurrence of the external cause
CPT/HCPCS: 36415 ×2; 80053; 80177; 83605 ×2; 85025; 73030; 73562; 72125; 70450; 99284; 96374; 96361; J2060